=== PATIENT | male | born 1970 | race American Indian/Alaskan Native ===

== ENCOUNTER 2019-04-05 08:29 | Day surgery (SDC) | payer OTHER ==
[2019-04-05] MEDS: NACL 0.9% 500 ML 500 ML IV SCH ×2 (09:50→12:15)
[2019-04-05 10:23] LABS: INR 1.16 (0.87-1.13)
[2019-04-05 10:25] LABS: Partial Thromboplastin Time 25.8 Sec. (24.2-36.6)
[2019-04-05 10:28] LABS: Hematocrit 42.7 % (35.5-45.6); Mean Corpuscular HGB Conc 33 % (32-34); Mean Corpuscular Volume 83 fl (84-94); Platelet Count 325 K/mm3 (140-440); Red Blood Count 5.12 M/mm3 (3.65-5.03); Red Cell Distribution Width 16.8 % (13.2-15.2)
[2019-04-05 11:39] LABS: BUN/Creatinine Ratio 18; Blood Urea Nitrogen 16 mg/dL (9-20); Calcium 9.2 mg/dL (8.4-10.2); Hemolysis Index 9
[2019-04-05] MEDS ORDERED: NACL 0.9% 100 ML ONE (11:54)
[2019-04-05] MEDS ORDERED: ANGIOMAX IV ONE (11:54)
[2019-04-05] MEDS ORDERED: NACL 0.9% 500 ML 1,000 ML ONE ×2 (11:55→12:00)
[2019-04-05] MEDS ORDERED: ANCEF/STERILE WATER 2 GM/20 ML 2 GM/20 ML SYRINGE IV ONE (11:55)
[2019-04-05] MEDS ORDERED: XYLOCAINE 2% INFILTRATI ONE (11:55)
[2019-04-05] MEDS: VERSED ONE ×2 (12:30→12:36)
[2019-04-05] MEDS: SUBLIMAZE ONE ×2 (12:30→12:36)
[2019-04-05] MEDS ORDERED: NACL 0.9% 0 ML ONE (12:34)
[2019-04-05] MEDS ORDERED: VERSED ONE (12:37)
[2019-04-05] MEDS ORDERED: SUBLIMAZE ONE (12:37)
--- NOTE | 2019-04-05 13:50 | Short Stay Summary ---
Short Stay Documentation Date of service: 04/05/19 Narrative H&P: 48-year-old male with abnormal arterial duplex of the right lower extremity with mixed arterial and venous disease and lymphedema - History Principal diagnosis: Nonhealing wound RLE H&P: obtained from office - Allergies and Medications Current Medications: Allergies heparin Allergy (Unverified 04/05/19 08:30) Anaphylaxis Home Medications Medication Instructions Recorded Confirmed Last Taken Type Insulin Detemir [Levemir VIAL] 30 unit SQ QAM 04/05/19 04/05/19 04/04/19 History Lisinopril [Zestril TAB] 10 mg PO QDAY 04/05/19 04/05/19 04/04/19 History Metoprolol [Lopressor] 25 mg PO BID 04/05/19 04/05/19 04/04/19 History amLODIPine [Norvasc] 5 mg PO DAILY 04/05/19 04/05/19 04/04/19 History Active Medications Sodium Chloride (Nacl 0.9% 500 Ml) 500 mls @ 50 mls/hr IV DIRECT CAROLYN Last Admin: 04/05/19 09:50 Dose: 50 mls/hr Documented by: - Physical exam General appearance: no acute distress Lungs: Normal air movement Gastrointestinal: normal Extremities: normal temperature, normal color, abnormal (wound RLE) - Brief post op/procedure progress note Date of procedure: 04/05/19 Pre-op diagnosis: CLI of the right lower extremity Post-op diagnosis: other (venous disease of the right lower extremity) Procedure: Bilateral lower extremity angiography and third order selection of the right popliteal artery Anesthesia: local (w/ conscious sedation) Surgeon: GWEN CUEVAS Estimated blood loss: minimal Condition: stable - Hospital course Hospital course: Ready for discharge in 2 hrs - Disposition Condition at discharge: Stable Disposition: [id number] TO HOME OR SELFCARE - Discharge Diagnoses (1) Critical ischemia of lower extremity Status: Acute (2) Non-healing wound of lower extremity Status: Acute (3) Venous insufficiency Status: Acute (4) Lymphedema Status: Acute Short Stay Discharge Plan Activity: advance as tolerated Weight Bearing Status: Weight Bear as Tolerated Diet: regular Wound: keep clean and dry, other (do not lift more than 10 pounds for 1 week, do not go up stairs if possible, or go up slowly, be careful with left leg) Follow up with: BABS GARCIA MD [Primary Care Provider] - 7 Days
--- NOTE | 2019-04-05 14:10 | Operative Report ---
Operative Report Operative Report: EXAM: 1. Ultrasound-guided access of the left common femoral artery. 2. Angiography of the left lower extremity. 3. Selection of the abdominal aorta with angiography. 4. Selection of the right external iliac artery, superficial femoral artery, and off with you artery with angiography of the right lower extremity 5. Closure of the left common femoral artery with 6 [place] Pro-glide DATE: 04/05/19 [employer] WARMER: GWEN CUEVAS MD INDICATION: Nonhealing wound of the right lower extremity with lymphedema, veno us insufficiency, and weakly palpable pedal pulses with abnormal arterial duplex. MEDICATIONS: Please see nursing report for full details. DEVICES: 6 [place] Pro-glide CONTRAST: 75 MLs of nonionic contrast PROCEDURE: The risks, benefits, and alternatives were discussed with the patient; written informed consent was obtained. The patient's groins were prepped and draped in a sterile fashion. The left common femoral artery was evaluated with ultrasound and was patent. Under direct ultrasound guidance, the left common femoral artery was accessed with a 21-gauge micropuncture needle. 0.018 inch wire was passed into the aorta. Needle was exchanged for transitional dilator. Wire was exchanged for 0.035 inch wire. Transitional dilators exchange for 5 [place] sheath. Digital subtraction angiography was performed demonstrating patency of the left common femoral artery, external iliac artery, superficial femoral artery, profundofemoral artery, popliteal artery, anterior tibial artery, tibioperoneal trunk, peroneal artery, and posterior tibial artery. The puncture was appropriate, above the bifurcation below the inferior epigastric artery. The abdominal aorta was selected and digital subtraction angiography was performed demonstrating patency of the abdominal aorta, bilateral common iliac arteries, bilateral external iliac arteries, and bilateral internal iliac arteries. The right external iliac artery was selected, the right superficial femoral artery was selected, and the right popliteal artery was selected. Digital subtraction angiography was performed and ensuring patency of the right common femoral artery, profundofemoral artery, superficial femoral artery, anterior tibial artery, tibioperoneal trunk, and both the peroneal and posterior tibial artery. The popliteal artery had a 20% to 30% stenosis at the midportion of the vessel. This was evaluated in multiple projections and none of the projections had the stenosis greater than 30%. At this point, all wires, catheters, and sheaths were retracted to the left external iliac artery. This was then exchanged for 6 [place] Pro-glide which was used to close the arteriotomy with immediate hemostasis. Sterile dressing applied. Compression dressing applied. Patient tolerated the procedure well. No immediate postprocedural complications. FINDINGS: Please see procedure note above. IMPRESSION: Successful third order selection of the right lower extremity with bilateral lower extremity angiography and angiography of the abdominal aorta.
[2019-04-05 16:21] VITALS: BP 122/82
== END 2019-04-05 16:00 | disposition home or self-care (01) ==
LOC: CATHLABREC 08:29
PROVIDERS: ATTEND Radiology Diagnostic Radiology
DX: I70.213 Atherosclerosis of native arteries of extremities with intermittent claudication, bilateral legs (principal); I87.2 Venous insufficiency (chronic) (peripheral); I10 Essential (primary) hypertension; Z98.890 Other specified postprocedural states; Z79.01 Long term (current) use of anticoagulants; Z79.899 Other long term (current) drug therapy; Z79.4 Long term (current) use of insulin; Z88.8 Allergy status to other drugs, medicaments and biological substances
CPT/HCPCS: 36247; 36415; 75625; 75716; 80048; 85027; 85610; 85730; 99156; 99157; C1760; C1769; C1887; J0583; J0690; J2250; J3010; J7040; Q9967